=== PATIENT | female | born 1955 ===

== ENCOUNTER 2017-06-23 09:05 | Outpatient (CLI) | payer OTHER | END 2017-06-23 14:41 | disposition home or self-care (01) | LOC: MAMO-SONO 09:05 | DX: Z12.31 Encounter for screening mammogram for malignant neoplasm of breast (principal); E03.9 Hypothyroidism, unspecified ==

== ENCOUNTER 2018-02-24 07:31 | Outpatient (CLI) | payer OTHER | END 2018-02-24 16:51 | disposition home or self-care (01) | LOC: TOM 07:31 | DX: R31.21 Asymptomatic microscopic hematuria (principal) ==